=== PATIENT | male | born 1960 | race African-American/Black ===

== ENCOUNTER 2023-12-21 12:16 | Outpatient (CLI) | payer BC, OTHER ==
[2023-12-21 13:52] LABS: #Basophils 0.02 10x3/uL (0.0-0.2); #Eosinphils 0.17 10x3/uL (0.0-0.5); #Monocytes 0.64 10x3/uL (0.0-1.1); #Neutrophils 1.82 10x3/uL (1.5-8.4); %Basophils 0.4 % (0.0-2.0); %Eosinophils 3.7 % (0.0-6.0); %Lymphocytes 41.9 % (18.0-47.0); %Neutrophils 39.8 % (40.0-75.0); Hematocrit 42.7 % (38.8-50.0); Hemoglobin 14.9 g/dL (13.5-17.5); Mean Corpuscular HGB CONC 34.9 g/dL (32.0-36.0); Mean Corpuscular Hemoglobin 30.7 pg (27.0-33.0); Mean Platelet Volume 11.9 fl (7.4-10.4); Platelet Count 211 10x3/uL (150-450); RBC Distribution Width 13.5 % (11.5-14.5); Red Blood Cell (RBC) Count 4.85 10x6/uL (4.32-5.72); White Blood Cell (WBC) Count 4.6 10x3/uL (3.5-10.5)
[2023-12-21 14:48] LABS: ALT (SGPT) 29 U/L (8-55); AST (SGOT) 29 U/L (5-34); Alkaline Phosphatase 127 U/L (40-110); Anion Gap 13 mmol/L (10-20); BUN (Urea Nitrogen) 15 mg/dL (8.4-25.7); Calc. Creatinine Clearance 0 mL/min (70-130); Calcium 9.3 mg/dL (7.8-10.44); Carbon Dioxide 23 mmol/L (23-31); Chloride 106 mmol/L (98-107); Estimated GFR 98; Globulin 3.4 g/dL (2.4-3.5); Glucose 96 mg/dL (80-115); Potassium 4.1 mmol/L (3.5-5.1); Protein, Total 7.4 g/dL (5.8-8.1); Sodium 138 mmol/L (136-145)
== END 2023-12-21 12:17 | disposition home or self-care (01) ==
LOC: LABBT 12:16
PROVIDERS: ATTEND Surgery
DX: Z01.818 Encounter for other preprocedural examination (principal)
CPT/HCPCS: 80053; 85025; 93005; 93010

== ENCOUNTER 2023-12-22 08:11 | Day surgery (SDC) | payer BC, OTHER ==
[2023-12-21 12:38] VITALS: BMI 28.2
[2023-12-22] MEDS ORDERED: Bupivacaine 0.25% HCL 30 ML VIAL ONE (08:30)
[2023-12-22] MEDS ORDERED: Rocuronium Bromide 10 MG/ML (10ML VIAL) ONE (08:45)
[2023-12-22] MEDS ORDERED: fentaNYL PF 100 MCG/2 ML SYRINGE ONE (08:45)
[2023-12-22] MEDS ORDERED: PROPOFOL 20 ML ONE (08:45)
[2023-12-22] MEDS ORDERED: Lidocaine 1% PF 5 ML VIAL ONE (08:45)
[2023-12-22] MEDS ORDERED: Sodium Chloride 0.9% 100 ML ONE (09:11)
[2023-12-22] MEDS ORDERED: CEFAZOLIN 2 GM VIAL ONE (09:11)
[2023-12-22] MEDS ORDERED: Dexamethasone 20 MG/5 ML VIAL ONE (09:58)
[2023-12-22] MEDS ORDERED: Ondansetron PF 4 MG/2 ML Vial ONE (09:58)
[2023-12-22] MEDS ORDERED: Ketorolac Tromethamine 30 MG (1 mL) VIAL ONE (09:58)
[2023-12-22] MEDS ORDERED: ePHEDrine Sulfate 50 MG/10 ML VIAL ONE (10:00)
[2023-12-22] MEDS ORDERED: Glycopyrrolate 0.2 MG/ML 5 ML SYRINGE ONE (10:31)
[2023-12-22] MEDS ORDERED: NEOSTIGMINE 3 MG/3 ML SYR 3 MG/3 ML SYRINGE ONE (10:31)
[2023-12-22] MEDS ORDERED: HYDROmorphone 2 MG/ML VIAL ONE (10:44)
== END 2023-12-22 13:04 | disposition home or self-care (01) ==
LOC: SDC 08:11
PROVIDERS: ATTEND Surgery
PROC: 0JB70ZZ Excision of Back Subcutaneous Tissue and Fascia, Open Approach (ICD-10-PCS; principal; 2023-12-22)
PROC: 0YU54JZ Supplement Right Inguinal Region with Synthetic Substitute, Percutaneous Endoscopic Approach (ICD-10-PCS; principal; 2023-12-22)
DX: K40.90 Unilateral inguinal hernia, without obstruction or gangrene, not specified as recurrent (principal); D17.1 Benign lipomatous neoplasm of skin and subcutaneous tissue of trunk
CPT/HCPCS: 88304; A4314; A6258; C1781; J0665; J1100; J1170; J1885; J2405; J2704; J3490